=== PATIENT | female | born 1975 | race Caucasian/White ===

== ENCOUNTER 2025-04-03 11:59 | Emergency (ER) | payer BC, SELFPAY ==
[2025-04-03 12:00] VITALS: BMI 22.6
[2025-04-03 12:02] VITALS: BP 145/80
--- NOTE | 2025-04-03 14:06 | ED.GENMED ---
History of Present Illness
General
Chief Complaint: Numbness
Time Seen by Provider: 04/03/25 13:55
History of Present Illness
History of Present Illness:
Patient presents to the emergency department with sensory loss to the right side of her face beneath her lips and on cheek. Symptoms have been present for the past 3 weeks. She notes that there is some dullness to light touch but she still feels
pressure in the area. There is no pain. Saw dentist and mortuary technician did x-rays and examined her teeth and found no abnormalities. She denies any neurologic symptoms elsewhere on her body. She does have a history of dizziness and has had workup
including 2 brain MRIs in the past. She is scheduled to have an MRI with contrast to rule out MS. However, after seeing her primary doctor this morning she was referred to the emergency department for CT scan to rule out any bleeding or large
structural abnormalities.
Past History
Past History
ED Past Medical History: None
ED Past Surgical History: None
Social History
Tobacco: Former smoker
Alcohol: Occasional
Personal:
Phy Exam
Physical Exam
Physical Exam:
GENERAL APPEARANCE: NAD, well developed/ well nourished
EYES lids/conjunctiva normal
EARS/NOSE/THROAT Mucous membranes moist, uvula midline without oral pharyngeal erythema, exudate or swelling
HEAD/NECK normocephalic atraumatic, neck is supple.
RESPIRATORY respiratory effort normal, speaks in full sentences, no accessory muscle use. Lungs clear to auscultation without rhonchi, wheezes, rales
CARDIAC Regular rate and rhythm, no edema.
ABDOMINAL Soft, ND/NT. No pulsatile masses on exam, rebound tenderness, Tobias sign or pain over Mcburney's point.
MUSCLES/EXTREMITIES No abnormal range of motion, no swelling.
SKIN Warm, pink and dry. No rashes
NEUROLOGICAL Speech is clear and appropriate. Normal level of consciousness. 5/5 strength in all extremities. She has some dullness to sensation in the right V3 distribution. The remainder of her cranial nerves are intact. Sensation intact to
light touch throughout, otherwise.
PSYCH Normal mood and affect. Judgement/competence is appropriate
Course
Orders/Labs/Results
Orders:
Orders
04/03/25 14:05
CT Head W/o Iv Contrast Urgent
Comment:
Reason For Exam: sensory loss to R side of face V3
04/03/25 14:13
Basic Metabolic Panel Urgent
Complete Blood Count/With Diff Urgent
Abnormal Lab Results
04/03/25
14:13
Glucose 106 H mg/dl
(70-99)
04/03/25 14:13
04/03/25 14:13
Vital Signs
Initial and Last Documented VS:
Initial Vital Signs
Temp Pulse Resp BP Pulse Ox
98.5 F 88 16 145/80 99
04/03/25 12:02 04/03/25 12:02 04/03/25 12:02 04/03/25 12:02 04/03/25 12:02
Last Documented Vital Signs
Temp Pulse Resp BP Pulse Ox
98.2 F 88 16 134/77 99
04/03/25 14:00 04/03/25 12:02 04/03/25 12:02 04/03/25 14:20 04/03/25 14:22
*Critical Care Note
Total Time (30-74mins, 75-104mins- exclusive of procedures): Not Applicable
ED Attending Note
ED Attending Note
ED Attending Note:
Discussed workup with patient. Today we will order a CT scan of her head without contrast to rule out any large structural abnormalities or bleeding. However she does need further workup including an MRI of her brain with contrast to rule out
demyelinating process or other smaller lesions. Given age and lack of risk factors, doubt CVA, however patient will be having an MRI as an outpatient. Furthermore, she is out of the window for any type of intervention if this was a small acute
ischemic stroke.
-
Portions of this chart may have been created with voice recognition software.� Occasional wrong word or��sound alike� substitutions may have occurred due to the inherent limitations of voice recognition software.
Discharge Plan
Departure
Patient Disposition: Home (Routine Discharge)
Date of Disposition: 04/03/25
Time of Disposition: 18:12
Patient with high blood pressure during this ER visit?: Yes
Discharge Problem:
Facial numbness
Prescriptions:
No Action
No Current Medications
0
Referrals:
Ezio Pozo CRNP [Family Provider] -
Activity Restrictions/Additional Instructions:
please follow up as scheduled for outpatient MRI and further workup for MS
return to ER with new or worsening symptoms
Interventions
Interventions:
*Risk Screen - Suicide Last Done: 04/03/25 12:02
*General Assessment Last Done: 04/03/25 12:02
*Neglect/Abuse Screening Last Done: 04/03/25 12:02
*ED- Fall Risk Assessment Last Done: 04/03/25 14:13
*ED COVID-19 Vaccine History Last Done: 04/03/25 12:02
*Nursing Disposition Last Done: 04/03/25 18:28
ED- Neurological Assessment Last Done: 04/03/25 14:13
Discharge Date and Time
Discharge Date/Time: 04/03/25 18:40
Print Language: ITALIAN
[2025-04-03 14:20] VITALS: BP 134/77
[2025-04-03 14:40] LABS: % Eosinophils 0.5 % (0-6); % Immature Granulocytes 0.2 % (0-0.5); % Monocytes 5.1 % (1.7-9.3); % Neutrophils 71.2 % (42.2-75.2); Absolute Basophils 0.1 10^3/uL (0-0.2); Absolute Lymphocytes 1.3 10^3/uL (1.2-3.4); Absolute Monocytes 0.3 10^3/uL (0.1-0.6); Absolute Neutrophils 4.3 10^3/uL (1.4-6.5); Hematocrit 39.2 % (37.0-47.0); Hemoglobin 13.6 g/dL (12.0-16.0); Mean Corp Hgb Conc. 34.7 g/dL (33.0-37.0); Mean Corpuscular Hgb 29.5 pg (27.0-31.0); Mean Platelet Volume 10.1 fL (7.4-10.4); Nucleated Red Blood Cells % 0 %; Platelet Count 277 10^3/uL (130-400); Red Blood Cell Count 4.61 10^6/uL (4.20-5.40); Red Cell Dist. Width 12.4 % (11.5-14.5); White Blood Cell Count 6.1 10^3/uL (4.8-10.8)
[2025-04-03 14:45] LABS: Blood Urea Nitrogen 12 mg/dl (7-17); Calcium 10.1 mg/dl (8.4-10.2); Carbon Dioxide 24 mmol/L (22-30); Chloride 105 mmol/L (98-107); Estimated Creatinine Clearance 74 ml/min; Glucose 106 mg/dl (70-99); Potassium 4.1 mmol/L (3.5-5.1); Sodium 141 mmol/L (135-145); eGFR > 60.00
== END 2025-04-03 18:40 | disposition home or self-care (01) ==
LOC: EMR 11:59
PROVIDERS: EMERGENCY PHYSICIAN Emergency Medicine; FAMILY PHYSICIAN Nurse Practitioner Family
DX: R20.0 Anesthesia of skin (principal); Z87.891 Personal history of nicotine dependence
CPT/HCPCS: 99284; 70450; 80048; 85025